=== PATIENT | female | born 1980 | race Asian ===

== ENCOUNTER → 2016-09-29 | Outpatient (CLI) | payer OTHER ==
[~2016-09-29] MED LIST: MTR600X PO; OXYC-57 PO; PRENTAB26 PO
== END | disposition home or self-care (01) ==
LOC: C.PAPS 09:33
PROVIDERS: ATTEND Obstetrics & Gynecology
DX: O09.521 Supervision of elderly multigravida, first trimester (principal)

== ENCOUNTER → 2016-09-29 | Outpatient (CLI) | payer OTHER ==
[2016-09-29 16:38] LABS: BASO % 0.8 %; BASO ABS # 0.07 K/uL (0-0.2); COMPLETE YES; EOS % 2.9 %; HEMATOCRIT 37.8 % (37-47); IG% 0.1 %; LYMPH ABS # 1.95 K/uL (1.2-3.4); MEAN CELL VOLUME 89.4 fL (80-100); MEAN CORPUSCULAR HEMOGLOBIN 31.2 pg (25-34); MEAN CORPUSCULAR HGB CONC 34.9 g/dl (32-36); MONO % 5.9 %; NEUT % 69.3 %; PLATELET COUNT 231 K/uL (130-400); RED BLOOD COUNT 4.23 M/uL (4.2-5.4); WHITE BLOOD COUNT 9.28 K/uL (4.8-10.8)
[2016-09-29 18:53] LABS: URINE APPEARANCE CLEAR (CLEAR); URINE BILIRUBIN NEG (NEG); URINE COLOR YELLOW; URINE NITRITE NEG (NEG); URINE PH 6.5 (4.5-7.5); URINE SPECIFIC GRAVITY 1.004 (1.000-1.030); UROBILINOGEN NEG (NEG)
[2016-09-29 19:04] LABS: MANUAL MICROSCOPIC REQUIRED? NO; REVIEW REQ? NO
[2016-10-01 03:31] LABS: HBSAG REACTIVE (NON-REACTIVE)
[2016-10-04 03:24] LABS: CHLAMYDIA TRACH RNA*** NOT DETECTED (NOT DETECTED); GC (NEIS GONORRHOEAE)RNA** NOT DETECTED (NOT DETECTED)
== END | disposition home or self-care (01) ==
LOC: C.LAB1850 15:54
PROVIDERS: ATTEND Obstetrics & Gynecology
DX: O09.521 Supervision of elderly multigravida, first trimester (principal); B18.1 Chronic viral hepatitis B without delta-agent; Z3A.00 Weeks of gestation of pregnancy not specified

== ENCOUNTER → 2016-10-30 | Outpatient (CLI) | payer OTHER ==
[2016-10-30 12:04] LABS: ALKALINE PHOSPHATASE 49 U/L (45-117); ALT/SGPT 32 U/L (12-78); AST/SGOT 18 U/L (15-37)
[2016-11-02 08:29] LABS: HEP B QUANT 39130 IU/mL (<20); HEP B QUANT LOG IU/ML 4.59 Log IU/mL (<1.30); HEPATITIS BE ANTIGEN TC 555 Nonreactive; HEPATITIS C VIRAL RNA BY PCR <15 DETECTED IU/ML (<15); HEPATITIS C VIRAL RNA(LOG) PCR <1.18 DETECTED LOG IU/ML (<1.18)
== END | disposition home or self-care (01) ==
LOC: C.LAB1850 09:40
PROVIDERS: ATTEND Obstetrics & Gynecology
DX: B18.1 Chronic viral hepatitis B without delta-agent (principal); O09.521 Supervision of elderly multigravida, first trimester

== ENCOUNTER → 2016-11-23 | Outpatient (CLI) | payer OTHER ==
[2016-11-23 13:49] LABS: GTGD 50 Grams
[2016-11-29 04:17] LABS: AFP CONCENTRATION 27.8 NG/ML; AFP MULTIPLE OF MEDIAN 0.68; AFPTS GESTATIONAL AGE 16.6 WEEKS; AFPTS INSULIN DEP DIABETIC? NO; AFPTS MATERNAL WT 119 LBS; HISTORY OF NTD NO; LIVER FIBR APOLIPOPROTEIN A-1 227 mg/dL (101-198); LIVER FIBROS ALPHA-2-MACROGLOB 257 mg/dL (106-279); LIVER FIBROSIS GGT 11 U/L (3-50); NECROINFLAMMATION ACT GRADE A0; NECROINFLAMMATION ACT SCORE 0.07; REPEAT SAMPLE? NO
== END | disposition home or self-care (01) ==
LOC: C.LAB1850 11:55
PROVIDERS: ATTEND Obstetrics & Gynecology
DX: O09.522 Supervision of elderly multigravida, second trimester (principal); B18.1 Chronic viral hepatitis B without delta-agent

== ENCOUNTER → 2016-12-04 | Outpatient (CLI) | payer OTHER | END | disposition home or self-care (01) | LOC: C.LAB1850 08:20 | PROVIDERS: ATTEND Obstetrics & Gynecology | DX: O09.522 Supervision of elderly multigravida, second trimester (principal) ==

== ENCOUNTER → 2017-02-15 | Outpatient (CLI) | payer OTHER ==
[2017-02-15 14:31] LABS: URINE APPEARANCE CLEAR (CLEAR); URINE BILIRUBIN NEG (NEG); URINE COLOR YELLOW; URINE EPITHELIAL CELL AUTO >30 /lpf (0-5); URINE NITRITE NEG (NEG); URINE PH 7.5 (4.5-7.5); UROBILINOGEN NEG (NEG)
[2017-02-15 14:32] LABS: MANUAL MICROSCOPIC REQUIRED? NO; REVIEW REQ? NO
== END | disposition home or self-care (01) ==
LOC: C.LABSPEC 13:41
PROVIDERS: ATTEND Obstetrics & Gynecology
DX: O09.522 Supervision of elderly multigravida, second trimester (principal)

== ENCOUNTER → 2017-02-21 | Outpatient (CLI) | payer OTHER ==
--- NOTE | 2017-02-21 14:49 | MAMMOGRAPHY REPORT ---
ULTRASOUND OF LEFT BREAST: 02/21/2017 CLINICAL HISTORY: The patient is currently 29 weeks . She reports she has had a nipple mass on her left nipple since childhood, and has gotten much larger since she has been . She has been in the past, and at that time the mass did increase in size but decreased in size after her . She denies any nipple discharge. COMPARISON: No prior exams were available for comparison. TECHNIQUE: Real-time targeted ultrasound of the left breast was performed. FINDINGS: On clinical exam, a mass is present on the left nipple. Real-time, high resolution targeted ultrasoun d was performed of the left subareolar breast. No intraductal mass or other suspicious mass is seen within the breast parenchyma. IMPRESSION: ACR BI-RADS CATEGORY 4A: LOW SUSPICION FOR MALIGNANCY - FOLLOW-UP RECOMMENDED No suspicious abnormality is seen within the left subareolar breast on ultrasound. Given that the pa naif has had the nipple mass for years and given that it has previously fluctuated in size with preg lei, it is probably benign and may represent an adenoma or other benign mass. However, given that the mass has increased clinically in size, recommend surgical consultation to determine whether this should be excised or followed clinically. A phone call was made to the physician's office to confirm faxed results were received. The patient was verbally notified of the results. Martine Delaney M.D. ah/:02/21/2017 12:17:24 Attending Technologist: Christopher DIANE(Jono)(M), [facility] Automatic Maintainer: Martine Delaney MD, [facility] letter sent: Abnormal 4/5 BI-RADS Code: ACR BI-RADS Category 4A: Low Suspicion For Malignancy
== END | disposition home or self-care (01) ==
LOC: C.MAMM 09:40
PROVIDERS: ATTEND Obstetrics & Gynecology
DX: Q83.9 Congenital malformation of breast, unspecified (principal)

== ENCOUNTER → 2017-03-07 | Outpatient (CLI) | payer OTHER | END | disposition home or self-care (01) | LOC: C.PATHSPEC 17:27 | PROVIDERS: ATTEND Surgery | DX: Q83.9 Congenital malformation of breast, unspecified (principal); B07.8 Other viral warts ==

== ENCOUNTER → 2017-03-29 | Outpatient (CLI) | payer OTHER ==
[2017-03-29 13:12] LABS: HEMATOCRIT 40.1 % (37-47)
== END | disposition home or self-care (01) ==
LOC: C.LAB1850 10:32
PROVIDERS: ATTEND Obstetrics & Gynecology
DX: O09.522 Supervision of elderly multigravida, second trimester (principal); Z3A.00 Weeks of gestation of pregnancy not specified

== ENCOUNTER → 2017-04-12 | Outpatient (CLI) | payer OTHER | END | disposition home or self-care (01) | LOC: C.LABSPEC 14:10 | PROVIDERS: ATTEND Obstetrics & Gynecology | DX: O09.523 Supervision of elderly multigravida, third trimester (principal) ==

== ENCOUNTER 2017-04-30 00:34 | Inpatient (IN) | payer OTHER ==
--- NOTE | 2017-04-16 11:23 | PAT Medication Instructions ---
Service Date Apr 16, 2017. Current Home Medication List Multivit/Min/Iron/Fol Ac/Pren ( Vitamin), 1 TAB PO DAILY Medication Instructions For Your Scheduled Surgery - Hold the following medications the morning of surgery: Multivit/Min/Iron/Fol Ac/Pren ( Vitamin), 1 TAB PO DAILY If you have any questions please call us at [phone] or [phone] or [phone]
[2017-04-16 12:04] LABS: BASO % 0.5 %; BASO ABS # 0.03 K/uL (0-0.2); COMPLETE YES; EOS % 0.9 %; HEMATOCRIT 42.1 % (37-47); IG% 0.3 %; LYMPH % 29.1 %; LYMPH ABS # 1.86 K/uL (1.2-3.4); MEAN CORPUSCULAR HEMOGLOBIN 32.7 pg (25-34); MEAN CORPUSCULAR HGB CONC 33.7 g/dl (32-36); MEAN PLATELET VOLUME 10.8 fL (7.4-10.4); MONO % 5.6 %; NEUT % 63.6 %; PLATELET COUNT 145 K/uL (130-400); RED BLOOD COUNT 4.34 M/uL (4.2-5.4)
[2017-04-16 12:15] LABS: ALT/SGPT 24 U/L (12-78); BLOOD UREA NITROGEN 12 mg/dl (7-18); BUN/CREATININE RATIO 20.8 (10-20); CALCIUM 9.8 mg/dl (8.5-10.1); CARBON DIOXIDE 23 mmol/L (21-32); CHLORIDE 106 mmol/L (98-107); CREATININE 0.59 mg/dl (0.60-1.20); GLUCOSE 87 mg/dl (70-99); POTASSIUM 4.2 mmol/L (3.5-5.1); SODIUM 138 mmol/L (136-145)
[2017-04-16 12:22] LABS: ALB/GLOB RATIO 0.6 (0.9-2); ALKALINE PHOSPHATASE 225 U/L (45-117); AST/SGOT 22 U/L (15-37)
--- NOTE | 2017-04-21 16:59 | History and Physical ---
History & Physical Date Apr 21, 2017. Chief Complaint repeat section History of Present Illness The patient is a 36yo with EDC 05/06/17 presenting for repeat section. complicated by h/o section, chronic hepatitis B infection, gestational diabetes mellitus A1, advanced maternal age, breast wart excised by general surgery 03/2017. Past Medical/Surgical History PMH: chronic Hep B PSH: nipple lesion removed, nose reconstruction, (no records available ) Additional History Hepatic Disease: Yes Endocrine Disorder: No Kidney Disease: No Hypertension: No Heart Disease: No Bleeding Tendencies: No Infectious Diseases: No Allergies Coded Allergies: No Known Allergies (Unverified , 04/16/17) Home Medications Scheduled Multivit/Min/Iron/Fol Ac/Pren ( Vitamin), 1 TAB PO DAILY Physical Examination Skin: warm/dry, no rash Eyes: normal inspection, sclerae normal ENT: pharynx normal Head: normocephalic, atraumatic Neck: supple, no adenopathy, trachea midline Respiratory/Chest: lungs clear, normal breath sounds, no respiratory distress Cardiovascular: regular rate, rhythm, no edema, no murmur Abdomen / GI: normal bowel sounds, non tender, + pertinent finding (gravid) Back: normal inspection Extremities: normal inspection, normal range of motion Neurologic/Psych: no motor/sensory deficits, alert, normal reflexes, oriented x 3 Diagnosis term IUP with h/o section Plan of Treatment Repeat section
[~2017-04-30] VITALS: Ht 157.5 cm; Wt 68.0 kg
[2017-04-30] VITALS (12 sets, daily range): BP systolic 122–148; BP diastolic 74–86; PULSE 76–86; TEMP 36.6–37; O2SAT 95–98; Ht 157.5 cm; Wt 68.0 kg
[~2017-04-30 00:34] MED LIST changes: -MTR600X PO; -OXYC-57 PO
[2017-04-30] MEDS ORDERED: LACTATED RINGER'S 1000ML 1,000 ML IV ONE (06:00)
[2017-04-30] MEDS ORDERED: CEFAZOLIN 2000 MG/60 ML D5W IV SCH (06:00)
[2017-04-30 06:28] LABS: BASO % 0.6 %; BASO ABS # 0.04 K/uL (0-0.2); EOS % 0.8 %; IG% 0.1 %; LYMPH % 41.6 %; LYMPH ABS # 2.98 K/uL (1.2-3.4); MEAN CELL VOLUME 96.6 fL (80-100); MEAN CORPUSCULAR HEMOGLOBIN 34.1 pg (25-34); MEAN PLATELET VOLUME 11.7 fL (7.4-10.4); MONO % 6.4 %; NEUT % 50.5 %; PLATELET COUNT 122 K/uL (130-400); RED BLOOD COUNT 4.14 M/uL (4.2-5.4); WHITE BLOOD COUNT 7.17 K/uL (4.8-10.8)
[2017-04-30 06:47] LABS: COMPLETE YES; MEAN CORPUSCULAR HGB CONC 35.3 g/dl (32-36)
[2017-04-30 07:00] LABS: ALT/SGPT 24 U/L (12-78); BLOOD UREA NITROGEN 15 mg/dl (7-18); BUN/CREATININE RATIO 21.6 (10-20); CALCIUM 8.8 mg/dl (8.5-10.1); CARBON DIOXIDE 19 mmol/L (21-32); CHLORIDE 108 mmol/L (98-107); CREATININE 0.68 mg/dl (0.60-1.20); GLUCOSE 81 mg/dl (70-99); POTASSIUM 3.8 mmol/L (3.5-5.1); SODIUM 139 mmol/L (136-145)
[2017-04-30 07:01] LABS: ALB/GLOB RATIO 0.7 (0.9-2); ALKALINE PHOSPHATASE 254 U/L (45-117); AST/SGOT 22 U/L (15-37)
[2017-04-30] MEDS ORDERED: CITRIC ACID/SODIUM CITRATE 15 ML UDC ONE ×2 (07:19→07:20)
[2017-04-30] MEDS ORDERED: MoRPHine SULFATE PF 1 MG/ML 10 ML AMP/VIAL ONE (07:19)
[2017-04-30] MEDS ORDERED: BUPIVACAINE 0.5 % 5 MG/1 ML PF 10ML VIAL ONE (07:23)
[2017-04-30] MEDS ORDERED: OXYTOCIN INJ 10 UNITS/ML VIAL ONE ×4 (07:23→08:45)
[2017-04-30] MEDS ORDERED: SODIUM CHLORIDE 0.9% 1000ML 1,000 ML IV PRN (07:28)
[2017-04-30] MEDS ORDERED: LACTATED RINGER'S 1000ML 500 ML IV PRN (07:28)
[2017-04-30] MEDS ORDERED: NALOXONE HCL INJ 1 MG in SODIUM CHLORIDE 0.9% 1000ML 1,000 ML IV PRN (07:28)
[2017-04-30] MEDS ORDERED: NALOXONE HCL INJ 0.08 MG in SYRINGE 1.8 ML IV PRN (07:28)
--- NOTE | 2017-04-30 07:29 | History & Physical Bridge Note ---
H&P Re-Evaluation Bridge Note: I have examined the patient, reviewed the History & Physical and in the interval since the performance of the History & Physical I have noted the following changes of clinical significance: No changes noted
[2017-04-30] MEDS ORDERED: NALBUPHINE HCL INJ 10 MG/ML AMP IV PRN (07:30)
[2017-04-30] MEDS ORDERED: NO NARCOTICS OR SEDATIVES SCH (07:30)
[2017-04-30] MEDS ORDERED: DiphenhydrAMINE HCL 50 MG/ML VIAL IV PRN ×2 (07:30→23:31)
[2017-04-30] MEDS ORDERED: ONDANSETRON INJ 2 MG/ML 2 ML VIAL IV PRN ×2 (07:30→23:31)
[2017-04-30] MEDS ORDERED: MoRPHine SULFATE 2 MG/ML CARP IV PRN (07:30)
[2017-04-30] MEDS ORDERED: KETOROLAC TROMETHAMINE 30 MG/ML VIAL IV. PRN ×2 (07:30→23:31)
[2017-04-30] MEDS ORDERED: EpHEDrine SULFATE INJ 50 MG/ML AMP IV PRN (07:30)
[2017-04-30] MEDS ORDERED: CITRIC ACID/SODIUM CITRATE 15 ML UDC PO ONE (07:30)
[2017-04-30] MEDS ORDERED: MoRPHine SULFATE PF 1 MG/ML 10 ML AMP/VIAL EPI PRN (07:30)
[2017-04-30] MEDS ORDERED: NALOXONE HCL 0.4 MG/1 ML VIAL/CARP IV PRN (07:30)
--- NOTE | 2017-04-30 09:03 | [facility] Post Operative Brief Note ---
Immediate Operative Summary Operative Date Apr 30, 2017. Pre-Operative Diagnosis Previous Caesarean Section x 1; Pt desires Repeat Caesarean Section. Post-Operative Diagnosis Same as Preop Procedure(s) Performed Live Female at [address] Santos Deli Cook Surgeon(s) Dr. Cortes Estimated Blood Loss 700 ML Findings Viable female . Apgars 8/9. Weight 7#11. Normal appearing uterus, tubes, ovaries. A piece of suture, presumably from prior surgery, adhered under posterior uterine serosa. Specimens Placenta (Exam) Cord Blood Cord Gases Drains garza, clear yellow Anesthesia spinal Complication(s) None Disposition L&D
[2017-04-30] MEDS ORDERED: LACTATED RINGER'S 1000ML 1,000 ML IV SCH (09:04)
--- NOTE | 2017-04-30 09:08 | Anesthesiology Progress Note ---
Anesthesia Post Op Note Date & Time Apr 30, 2017 at 09:08 Notes Mental Status: alert / awake / arousable, participated in evaluation Pt Amnestic to Procedure: Yes Nausea / Vomiting: adequately controlled Pain: adequately controlled Airway Patency, RR, SpO2: stable & adequate BP & HR: stable & adequate Hydration State: stable & adequate Anesthetic Complications: no major complications apparent
[2017-04-30] MEDS ORDERED: HYDROCORTISONE ACETATE 25 MG SUPP PR PRN (09:15)
[2017-04-30] MEDS ORDERED: LANOLIN OINT EXT PRN ×2 (09:15)
[2017-04-30] MEDS ORDERED: SUPERCREAM 0.870 % 15GM JAR EXT PRN (09:15)
[2017-04-30] MEDS ORDERED: BENZOCAINE 20% AER SPR 82.5 GM CAN EXT PRN (09:15)
[2017-04-30] MEDS ORDERED: MAGNESIUM HYDROXIDE SUSP 30 ML UDC PO PRN (09:15)
[2017-04-30] MEDS ORDERED: OXYTOCIN INJ 30 UNITS in LACTATED RINGER'S 1000ML 1,000 ML IV SCH (09:30)
--- NOTE | 2017-04-30 10:20 | OPERATIVE REPORT ---
DATE OF OPERATION: 04/30/2017 PREOPERATIVE DIAGNOSES: 1. A 36-year-old G2, P1-0-0-1 at 39 weeks 1 day. 2. History of section x1 with unknown incision type. 3. Advanced maternal age. 4. Chronic hepatitis B. 5. Gestational diabetes mellitus, A1. POSTOPERATIVE DIAGNOSES: Same. PROCEDURES PERFORMED: Repeat low transverse section. SURGEON: Brittany Santos DO. CAVALRY SCOUT: Dr. Jazz Cortes. ESTIMATED BLOOD LOSS: 700 mL. FINDINGS: Viable female , Apgars 8 and 9, weight 7 pounds 11 ounces. Normal appearing uterus, tubes, and ovaries. A piece of suture presumably from prior surgery was adhered under the posterior uterine serosa. SPECIMENS: Placenta, cord blood, and cord gases. DRAINS: Ang, clear yellow. ANESTHESIA: Spinal. COMPLICATIONS: None. DISPOSITION: Stable and good to labor and delivery. INDICATIONS FOR PROCEDURE: The patient is a 36-year-old G2, P1-0-0-1 at 39 weeks and 1 day with a history of section x1, no operative report was available. The patient elected for repeat section. DESCRIPTION OF PROCEDURE: The patient had previously signed informed consent in the office under no duress. She was seen in the preoperative holding area, where risks, benefits, and alternatives were reviewed. Questions were answered. She had previously signed informed consent with the use of an theater company producer phone. The patient was given 2 grams of Ancef preoperatively. She was then taken to the operating room, where spinal anesthesia was administered. She was prepared and draped in the usual sterile fashion in the supine position with a leftward tilt. Timeout was confirmed. A scalpel was used to make the skin incision and the previous incision was removed. The Pfannenstiel skin incision was then taken down to the layer of the fascia with the Bovie. Fascia was nicked at midline and this incision was extended bilaterally with Bovie and blunt dissection. The superior aspect of the fascial incision was grasped with Dk clamps x2 and elevated off the underlying rectus abdominis muscle. This was dissected bluntly and sharply. In a similar fashion, the inferior aspect of the incision was dissected. The rectus abdominis muscles were with a hemostat and this incision was bluntly and sharply extended. Bladder blade was placed. A bladder flap was created using Metzenbaum scissors. The bladder blade was replaced. A new scalpel was used for a low transverse uterine incision. This incision was extended cephalad caudad manually. Clear amniotic fluid was noted. The was delivered from a cephalic presentation. The head delivered followed by the anterior and then posterior shoulders followed by the body. Spontaneous cry was heard on the field. The cord was doubly clamped and cut. The baby was handed off to waiting pediatrics team. A cord segment was obtained. Cord blood was obtained. The umbilical cord avulsed during delivery of placenta and therefore, the placenta was manually removed. Multiple adhered bits of amniotic membranes were removed using ring forceps. The uterus was swept of all clots and debris. The hysterotomy incision was reapproximated using 0 Vicryl in a running locked stitch. A second layer of the same suture was used to imbricate this incision. The posterior uterus was evaluated and the above noted findings were seen. The uterus was returned to the abdominal cavity. Gutters were cleared of all clots and debris. The hysterotomy incision was noted to be hemostatic. The fascia was reapproximated with a running stitch of 0 Vicryl. Subcutaneous tissue was irrigated and then reapproximated with 2-0 plain gut suture. The skin was reapproximated with 4-0 Vicryl in a running subcuticular stitch. Steri-Strips and a bandage were applied. The patient was taken to the labor and delivery room in stable and good condition. I attest to the content of the Intraoperative Record and any orders documented therein. Any exception s are noted below.
[2017-04-30] MEDS: SIMETHICONE 80 MG CHEW PO SCH ×3 (12:00→20:15)
[2017-04-30] MEDS: DOCUSATE SODIUM 100 MG CAP PO SCH (20:15)
[2017-04-30] MEDS ORDERED: DC INTRASPINAL MORPHINE SCH (23:30)
[2017-04-30] MEDS ORDERED: OXYCODONE/ACETAMINOPHEN 5-325 TAB PO PRN (23:31)
[2017-04-30] MEDS ORDERED: PROMETHAZINE HCL INJ 25 MG in SODIUM CHLORIDE 0.9% 50ML 50 ML IV PRN (23:31)
[2017-05-01 00:05] VITALS: BP 120/74; PULSE 98; TEMP 36.9; O2SAT 95
[2017-05-01 04:00] VITALS: BP 116/71; PULSE 102; TEMP 37.2; O2SAT 96
--- NOTE | 2017-05-01 07:09 | Progress Note ---
Subjective May 01, 2017. Subjective conversation w/ patient, physical exam, chart review, lab review Ambulation: ambulating normally Voiding: no voiding problems Passing Gas: Yes Diet Tolerance: Regular Diet Lochia: Moderate Feeding Type: Breast Feeding Pain: 5/10 Comment: Pt seen and examined at bedside. no acute overnight events. c/o gas Review of Systems Constitutional: No fever Respiratory: No shortness of breath Cardiac: No chest pain Abdomen: + problem reported (c/o gas), No nausea, No vomiting Female : No dysuria Objective Vital Signs Date Time Temp Pulse Resp B/P (MAP) Pulse Ox O2 Delivery O2 Flow Rate FiO2 05/01/17 04:00 37.2 102 18 116/71 (86) 96 Room Air 05/01/17 00:05 18 95 05/01/17 00:05 Room Air 05/01/17 00:05 36.9 98 18 120/74 (89) 95 Room Air 04/30/17 21:50 18 98 04/30/17 20:50 18 96 04/30/17 19:50 18 98 04/30/17 19:50 37.0 86 18 128/79 (95) 98 Room Air 04/30/17 19:50 Room Air 04/30/17 19:15 18 97 04/30/17 16:30 36.8 80 18 128/81 (97) 97 Room Air 04/30/17 16:30 97 Room Air 04/30/17 16:30 18 98 04/30/17 15:30 18 95 04/30/17 14:42 18 98 04/30/17 13:35 36.6 80 18 130/79 (96) 98 Room Air 04/30/17 13:30 18 98 04/30/17 12:35 36.7 78 16 122/74 (90) 98 Room Air 04/30/17 12:30 16 98 04/30/17 11:35 96 Room Air 04/30/17 11:35 18 96 04/30/17 11:35 96 Room Air 04/30/17 11:35 36.7 76 18 148/86 (106) 96 Room Air Physical Exam General Appearance: WELL-APPEARING, WD/WN, NO APPARENT DISTRESS Respiratory/Chest: chest non-tender, lungs clear, normal breath sounds Cardiovascular: regular rate, rhythm, no JVD Abdomen: normal bowel sounds, soft Fundus: Firm, Tender (appopriately tender), Relation to Umbilicus (2 below u) Extremities: non-tender, normal inspection, no pedal edema, no calf tenderness Laboratory Results Last 24 Hours Test 04/30/17 13:52 04/30/17 14:32 04/30/17 14:33 04/30/17 15:07 Bedside Glucose 69 mg/dl 67 mg/dl 66 mg/dl 72 mg/dl Test 05/01/17 06:00 Assessment and Plan Post-Op Day#: 1 Continue Routine Care: Pt is doing well clinically. - VS reviewed and WNL. - Encourage ambulation, monitor and control pain with Motrin PRN, continue regular diet, monitor lochia - Continue support Resident Physician Supervision Note: I was present with Dr. Tavera during the history and exam. I discussed the case with the resident and agree with the findings and plan as documented in the note. Any exceptions or clarifications are listed here: POD#1 doing well s/ p repeat c/s. Continue routine postop care. Documented By: Brittany Santos
[2017-05-01] MEDS: IBUPROFEN 600 MG TAB PO PRN ×2 (07:19→19:52)
[2017-05-01] MEDS: OXYCODONE/ACETAMINOPHEN 5-325 TAB PO PRN ×2 (07:20→19:52)
[2017-05-01 08:05] VITALS: BP 122/78; PULSE 85; TEMP 36.9; O2SAT 96
[2017-05-01] MEDS: DOCUSATE SODIUM 100 MG CAP PO SCH ×2 (08:19→19:52)
[2017-05-01] MEDS: SIMETHICONE 80 MG CHEW PO SCH ×4 (08:19→19:52)
[2017-05-01 08:54] LABS: BASO % 0.2 %; BASO ABS # 0.02 K/uL (0-0.2); COMPLETE YES; EOS % 0.3 %; HEMATOCRIT 36.2 % (37-47); IG% 0.2 %; LYMPH % 12.2 %; LYMPH ABS # 1.38 K/uL (1.2-3.4); MEAN CELL VOLUME 97.6 fL (80-100); MEAN CORPUSCULAR HEMOGLOBIN 32.6 pg (25-34); MEAN CORPUSCULAR HGB CONC 33.4 g/dl (32-36); MEAN PLATELET VOLUME 10.5 fL (7.4-10.4); MONO % 4.9 %; NEUT % 82.2 %; PLATELET COUNT 104 K/uL (130-400); RED BLOOD COUNT 3.71 M/uL (4.2-5.4); WHITE BLOOD COUNT 11.34 K/uL (4.8-10.8)
[2017-05-01 11:45] VITALS: BP 111/72; PULSE 86; TEMP 36.8; O2SAT 97
[2017-05-01 15:45] VITALS: BP 119/79; PULSE 89; TEMP 36.7; O2SAT 97
[2017-05-01] MEDS ORDERED: BISACODYL 5 MG TABEC PO ONE (22:00)
[2017-05-01 23:40] VITALS: BP 127/80; PULSE 83; TEMP 36.5; O2SAT 98
--- NOTE | 2017-05-02 05:04 | Discharge Instructions ---
Discharge Instructions Date of Service May 02, 2017. Admission Reason for Admission: Previous Section Discharge Discharge Diagnosis / Problem: Previous Section, Delivery Discharge Goals Goal(s): Routine recovery after Medications Continue Dispensed Medications: supercream, dermaplast, tucks, lansinoh Activity Recommendations Activity Limitations: per Instructions/Follow-up section . Instructions / Follow-Up Instructions / Follow-Up ACTIVITY RECOMMENDATIONS: * Gradual return to full activity over the next 2-3 weeks. * No lifting - nothing heavier than baby over the next 2-3 weeks. * Do not engage in vigorous exercise, sexual activity or sports until cleared by your physician. * Do not drive or operate any motorized equipment until cleared by your physician. * You may shower/bathe daily. MEDICATIONS: For discomfort or pain, you may use Acetaminophen (Tylenol), Ibuprofen (Advil), or Naproxen (Aleve) following the package directions. For constipation you may use Colace following the package directions. BREAST CARE: If you are not breast feeding: * Wear a supportive bra 24 hours a day for one to two weeks. * Avoid stimulating your breasts and nipples as much as possible during the first few weeks after delivery. * When taking a shower, have the warm water hit your back, not breasts. * When your breasts feel full, apply ice packs. Usually three to four times a day helps ease the discomfort. * Take a mild pain medication (Tylenol / Motrin) when you are uncomfortable. If breast feeding: * Use breast milk to lubricate nipples. Lansinoh cream may be used for sore nipples. You do not need to remove cream prior to breast feeding. If using a different brand of cream, check the label for directions regarding removal of cream prior to nursing. * Wear a supportive bra. * If having problems with breasts or breast feeding, call a custom decorating consultant or your health care provider. SPECIAL CARE INSTRUCTIONS: When you are discharged from the hospital, it is important for you to follow the instructions listed below: * During the first week at home, you should be able to care for yourself and your baby. In addition, the usual light household activities are encouraged. * Limit your activities to the way you feel. Do not try to clean the house or move furniture. Be sensible. * If you actively engage in sports and have done so up until the time of your delivery, you may resume these activities as soon as you feel able. This may take up to one month or even longer. Use good judgment. * Continue to take your vitamins for at least six weeks after the of your baby. * Your diet need not be limited unless you were on a special diet before your delivery. Breast-feeding mothers need around 2500 calories per day and at least 64-80 ounces of fluid per day (8 to 10 glasses). * You should eat foods from the four major food groups. Crash diets or fad diets are to be avoided. Eating lean meats, fresh fruits and vegetables, low-fat dairy products, high fiber foods and a regular exercise program, will help you get back to your pre- weight without putting your health at risk. * Constipation is sometimes a problem after delivery. Take a mild laxative as needed. If breast feeding, Milk of Magnesia is acceptable to use. You may use a suppository or Fleets enema. * A daily shower or tub bath is suggested. Wash incision daily with warm soapy water and pat dry. It doesn't need to be covered unless drainage is present. * A bloody vaginal discharge will usually continue until around four weeks . A small amount of bleeding may continue for as long as six weeks. Vaginal discharge changes from the bright red bleeding after delivery to pink then brownish and finally yellowish-pink before becoming white and disappearing. * Bleeding may increase with activity. Your first period may come in 4-8 weeks. If you are breast feeding, your period may be delayed even longer. * [place] (sex) can begin whenever both you and your partner feel comfortable and do not have any form of genital infection. It is recommended that you wait at least six weeks for internal and external healing to occur. If you have questions, please talk to your health care practitioner. A condom should be used to prevent infection and . * Foreplay, gentle intercourse and lubrication is very important the first several times to prevent pain. A water-based lubricant such as K-Y jelly or Astroglide may be used. * If you have RH negative blood and your baby is RH positive, you will receive RHOGAM by injection prior to discharge. The nurse will give you a card to keep with you that has the date and place that you received RHOGAM after delivery. * During your care, you had a Rubella screen done to check for the presence of rubella antibodies in your blood. If your test was negative, you will receive a Rubella vaccine prior to discharge. This vaccine may cause a fever, soreness at the injection site and flu-like symptoms. If these symptoms persist, notify your health care practitioner. is not advised for one month after a Rubella vaccine. * Verbalizes understanding of car seat law as reviewed with patient nursing. * Car Seat hand-out given and reviewed with patient by nursing. * Shaken baby information reviewed with patient by nursing. Call you doctor if: * Heavy bleeding (saturating several pads an hour) or passing clots the size of your fist. * A fever >101 degrees F (38.3 degrees C) on two occasions four hours apart and /or chills. * Unusual pain in the pelvic or vaginal areas. * Call the doctor for any increased redness, drainage or swelling around the incision and any pain unrelieved by prescribed pain medication. * "Baby Blues" lasting longer than two weeks. If you have any questions or concerns, call your health care practitioner at . FOLLOW UP VISIT: * Please call the office at to schedule a 6 week examination. It is important you keep this appointment. It is important for you to make arrangements for either yearly or twice yearly check-ups thereafter. Current Hospital Diet Patient's current hospital diet: Regular OB Diet Discharge Diet Recommended Diet: Regular Diet Procedures Procedures Performed: Live Female at 0808 Pending Studies Studies pending at discharge: no Medical Emergencies . Who to Call and When: Medical Emergencies: If at any time you feel your situation is an emergency, please call [phone] immediately. . Non-Emergent Contact Non-Emergency issues call your: Primary Care Provider . . "Provider Documentation" section prepared by Marielle Tavera. . VTE Core Measure Inpt VTE Proph given/why not?: SCD's
--- NOTE | 2017-05-02 06:49 | Progress Note ---
Subjective May 02, 2017. Subjective conversation w/ patient, physical exam Ambulation: ambulating normally Voiding: no voiding problems Passing Gas: Yes Diet Tolerance: Regular Diet Lochia: Small Feeding Type: Breast Feeding Pain: well controlled with po meds Review of Systems Constitutional: No fever, No chills, No sweats, No weight loss, No weakness, No fatigue, No problem reported Objective Vital Signs Date Time Temp Pulse Resp B/P (MAP) Pulse Ox O2 Delivery O2 Flow Rate FiO2 05/01/17 23:40 98 Room Air 05/01/17 23:40 36.5 83 18 127/80 (96) 98 Room Air 05/01/17 15:45 97 Room Air 05/01/17 15:45 36.7 89 18 119/79 (92) 97 Room Air 05/01/17 11:45 36.8 86 18 111/72 (85) 97 Room Air 05/01/17 08:05 36.9 85 18 122/78 (93) 96 Room Air 05/01/17 08:05 96 Room Air Physical Exam General Appearance: WELL-APPEARING, NO APPARENT DISTRESS Abdomen: soft Fundus: Firm, Non-Tender, Relation to Umbilicus (1 below U) Incision Description: Clean, Dry & Intact Extremities: no calf tenderness Laboratory Results Last 24 Hours Test 05/01/17 08:32 White Blood Count 11.34 K/uL Red Blood Count 3.71 M/uL Hemoglobin 12.1 g/dL Hematocrit 36.2 % Mean Corpuscular Volume 97.6 fL Mean Corpuscular Hemoglobin 32.6 pg Mean Corpuscular Hemoglobin Concent 33.4 g/dl Platelet Count 104 K/uL Mean Platelet Volume 10.5 fL Neutrophils (%) (Auto) 82.2 % Lymphocytes (%) (Auto) 12.2 % Monocytes (%) (Auto) 4.9 % Eosinophils (%) (Auto) 0.3 % Basophils (%) (Auto) 0.2 % Neutrophils # (Auto) 9.34 K/uL Lymphocytes # (Auto) 1.38 K/uL Monocytes # (Auto) 0.55 K/uL Eosinophils # (Auto) 0.03 K/uL Basophils # (Auto) 0.02 K/uL RDW Standard Deviation 48.7 fL RDW Coefficient of Variation 13.8 % Immature Granulocyte % (Auto) 0.2 % Immature Granulocyte # (Auto) 0.02 K/uL Assessment and Plan Post-Op Day#: 2 Continue Routine Care: stable post-op course continue current care plan.
[2017-05-02] MEDS ORDERED: OXYC-57 PO (07:11)
[2017-05-02] MEDS ORDERED: MTR600X PO (07:11)
[2017-05-02] MEDS: SIMETHICONE 80 MG CHEW PO SCH ×4 (08:09→20:14)
[2017-05-02] MEDS: DOCUSATE SODIUM 100 MG CAP PO SCH ×2 (08:09→20:14)
[2017-05-02] MEDS: IBUPROFEN 600 MG TAB PO PRN ×3 (08:20→20:15)
[2017-05-02] MEDS: OXYCODONE/ACETAMINOPHEN 5-325 TAB PO PRN ×3 (08:21→20:15)
[2017-05-02 09:05] VITALS: BP 145/88; PULSE 85; TEMP 36.5; O2SAT 97; O2SAT 98
[2017-05-02] MEDS ORDERED: BISACODYL 10 MG SUPP PR PRN (09:15)
[2017-05-02 12:45] VITALS: BP 132/83; PULSE 88; TEMP 36.7; O2SAT 97
[2017-05-02 15:40] VITALS: BP 139/87; PULSE 93; TEMP 36.5; O2SAT 98
[2017-05-02 23:45] VITALS: BP 128/81; PULSE 99; TEMP 36.6; O2SAT 98
[2017-05-03] MEDS: OXYCODONE/ACETAMINOPHEN 5-325 TAB PO PRN ×3 (01:05→15:26)
[2017-05-03] MEDS: IBUPROFEN 600 MG TAB PO PRN ×3 (01:05→15:26)
--- NOTE | 2017-05-03 07:11 | OB/GYN Progress Note ---
TRAINING GENERALIST Progress Note Date of Service May 03, 2017. Subjective conversation w/ patient, physical exam, chart review Voiding: no voiding problems Passing Gas: Yes Diet Tolerance: Regular Diet Lochia: Moderate Feeding Type: Breast Feeding Review of Systems Respiratory: No shortness of breath Cardiac: No chest pain Abdomen: No nausea, No vomiting Female : No dysuria Objective Vital Signs Date Time Temp Pulse Resp B/P (MAP) Pulse Ox O2 Delivery O2 Flow Rate FiO2 05/02/17 23:45 98 Room Air 05/02/17 23:45 36.6 99 20 128/81 (97) 98 Room Air 05/02/17 15:40 98 Room Air 05/02/17 15:40 36.5 93 18 139/87 (104) 98 Room Air 05/02/17 12:45 36.7 88 18 132/83 (99) 97 Room Air 05/02/17 09:05 36.5 85 18 145/88 (107) 97 Room Air 05/02/17 09:05 98 Room Air Physical Exam General Appearance: WELL-APPEARING, WD/WN, NO APPARENT DISTRESS Respiratory/Chest: lungs clear, normal breath sounds Cardiovascular: regular rate, rhythm, no JVD Abdomen: normal bowel sounds, soft Fundus: Firm, Tender (appropriately tender), Relation to Umbilicus (3 below U) Incision Description: Clean, Dry & Intact Extremities: non-tender, no calf tenderness Assessment and Plan Post-Op Day Number: 3 Continue Routine Care: Pt is doing well clinically. - VS reviewed and WNL. - Blood type A+/GBS negative - Encourage ambulation, monitor and control pain with Motrin PRN, continue regular diet, monitor lochia - Continue support Marielle Tavera PGY1 Resident Physician Supervision Note: I was present with Dr. Tavera during the history and exam. I discussed the case with the resident and agree with the findings and plan as documented in the note. Any exceptions or clarifications are listed here: Doing well, ready for d/c home. discussed her ?s via telescope maintenance. she denies further. d/c home, f/ u 6 wks pp check. Documented By: Shannen Lira Resident Tracking Resident Involvement: Resident Care Provided Care Provided: Adult [facility] Medicine
[2017-05-03] MEDS: DOCUSATE SODIUM 100 MG CAP PO SCH (08:31)
[2017-05-03] MEDS: SIMETHICONE 80 MG CHEW PO SCH ×2 (08:31→14:03)
[2017-05-03 09:08] VITALS: BP 124/79; PULSE 101; TEMP 36.7
[2017-05-03 11:24] VITALS: BP 163/94; PULSE 98; TEMP 36.5
[2017-05-03 11:49] LABS: HEMATOCRIT 37.1 % (37-47); MEAN CELL VOLUME 97.4 fL (80-100); MEAN CORPUSCULAR HEMOGLOBIN 33.9 pg (25-34); MEAN CORPUSCULAR HGB CONC 34.8 g/dl (32-36); MEAN PLATELET VOLUME 10.2 fL (7.4-10.4); PLATELET COUNT 147 K/uL (130-400); RED BLOOD COUNT 3.81 M/uL (4.2-5.4); WHITE BLOOD COUNT 9.35 K/uL (4.8-10.8)
[2017-05-03 12:24] LABS: BUN/CREATININE RATIO 22.6 (10-20); CREATININE 0.65 mg/dl (0.60-1.20)
[2017-05-03 12:27] LABS: ALB/GLOB RATIO 0.6 (0.9-2)
[2017-05-03 12:35] VITALS: BP 137/80; PULSE 94
[2017-05-03 15:34] VITALS: BP_DIAS 80; PULSE 94; TEMP 36.5
[2017-05-03 17:00] VITALS: BP 131/91; PULSE 94; TEMP 36.7; O2SAT 98
--- NOTE | 2017-05-07 21:47 | Discharge Summary ---
Discharge Summary Date of Service May 07, 2017. Discharge Summary Admission Date: Apr 30, 2017 at 05:43 Discharge Date: May 03, 2017 Discharge Disposition: Home Principal Diagnosis: s/p section Procedures: repeat low transverse section Consultations: anesthesia Medication Reconciliation New Medications: Ibuprofen (Ibuprofen) 600 Mg Tab 600 MG PO Q4H PRN for Pain, LAUREN, Cramping, or Fever, #60 TAB 3 Refills Oxycodone/Acetaminophen 5MG/325MG (Percocet 5MG/325MG) Tab 1 TAB PO Q4H PRN for Pain - Pain Scale 1-5, #20 TAB 0 Refills PAIN Continued Medications: Multivit/Min/Iron/Fol Ac/Pren ( Vitamin) Tab 1 TAB PO DAILY, TAB Hospital Course Scheduled repeat section, postop course unremarkable. Total Time Spent: Less than 30 minutes This includes examination of the patient, discharge planning, medication reconciliation, and communication with other providers. Discharge Instructions Please refer to the electronic Patient Visit Report (Discharge Instructions) for additional information. Follow-Up 2 weeks office
== END 2017-05-03 17:36 | disposition home or self-care (01) | DRG 765 ==
LOC: C.LD 05:43 → EDSTATUS 07:30 → C.OBG 11:41
PROVIDERS: ADMIT Obstetrics & Gynecology; ATTEND Obstetrics & Gynecology
PROC: 10D00Z1 Extraction of Products of Conception, Low, Open Approach (ICD-10-PCS; principal; 2017-04-30 07:30)
DX: O34.211 Maternal care for low transverse scar from previous cesarean delivery (principal); O98.42 Viral hepatitis complicating childbirth; B18.1 Chronic viral hepatitis B without delta-agent; Z37.0 Single live birth; Z3A.39 39 weeks gestation of pregnancy; O24.420 Gestational diabetes mellitus in childbirth, diet controlled; O09.523 Supervision of elderly multigravida, third trimester

== ENCOUNTER → 2017-05-10 | Outpatient (CLI) | payer OTHER ==
[~2017-05-10] MED LIST changes: +MTR600X PO; +OXYC-57 PO
[2017-05-10 15:14] LABS: URINE APPEARANCE CLEAR (CLEAR); URINE BILIRUBIN NEG (NEG); URINE COLOR YELLOW; URINE EPITHELIAL CELL AUTO 20-30 /lpf (0-5); URINE NITRITE NEG (NEG); URINE SPECIFIC GRAVITY 1.023 (1.000-1.030); UROBILINOGEN NEG (NEG)
[2017-05-10 15:17] LABS: MANUAL MICROSCOPIC REQUIRED? NO; REVIEW REQ? NO
== END | disposition home or self-care (01) ==
LOC: C.LABSPEC 13:44
PROVIDERS: ATTEND Obstetrics & Gynecology
DX: R30.0 Dysuria (principal)

== ENCOUNTER → 2017-05-11 | Outpatient (CLI) | payer OTHER ==
[2017-05-11 14:09] LABS: HEMATOCRIT 41.6 % (37-47); MEAN PLATELET VOLUME 9.4 fL (7.4-10.4); PLATELET COUNT 213 K/uL (130-400); RED BLOOD COUNT 4.29 M/uL (4.2-5.4)
[2017-05-11 14:13] LABS: MEAN CORPUSCULAR HGB CONC 35.1 g/dl (32-36)
[2017-05-11 14:26] LABS: ALT/SGPT 63 U/L (12-78); BLOOD UREA NITROGEN 17 mg/dl (7-18); BUN/CREATININE RATIO 22.9 (10-20); CALCIUM 9.7 mg/dl (8.5-10.1); CARBON DIOXIDE 27 mmol/L (21-32); CHLORIDE 106 mmol/L (98-107); CREATININE 0.75 mg/dl (0.60-1.20); GLUCOSE 97 mg/dl (70-99); POTASSIUM 4.2 mmol/L (3.5-5.1); SODIUM 139 mmol/L (136-145)
[2017-05-11 14:47] LABS: ALB/GLOB RATIO 0.8 (0.9-2); ALKALINE PHOSPHATASE 155 U/L (45-117); AST/SGOT 36 U/L (15-37)
== END | disposition home or self-care (01) ==
LOC: C.LAB1850 13:33
PROVIDERS: ATTEND Obstetrics & Gynecology
DX: R03.0 Elevated blood-pressure reading, without diagnosis of hypertension (principal)